=== PATIENT | male | born 1990 | race Caucasian/White ===

== ENCOUNTER 2025-01-03 08:54 | Emergency (ER) | payer OTHER, SELFPAY ==
--- OUTSIDE RECORDS SUMMARY | 2025-01-03 08:59 | XMS_ITS | Encounter Summary ---
Author Organization [facility] Healthcare Address [address] [place] [address] Care Team Providers Care Motorcycle Engine Assembler Name Role Phone Nathaniel Galdamez MD Primary Care Provider [phone] Encounter Details Date Type Department Care Team (Late st Contact Info) Description 11/26/2024 Results Follow-Up [facility] Medical Group Convenient Care at [address] [address] Magaly Mcneal, LINE CREWMAN [address] [place] [address] Jordyn-Ordoñez virus (EBV) antibody panel Blood Social History Tobacco Use Types Packs/Day Years Used Date Smoking Tobacco: Former Cigarettes 1 12.2 2 010 - 08/2021 Vaping Smokeless Tobacco: Never AUDIT-C Answer Date Recorded Q1: How often do you have a drink containing alc ohol? 2-3 times a week 11/12/2021 Q2: How many drinks containi ng alcohol do you have on a typical day when you are drinking? 1 or 2 11/12/2021 Q3: How often do you have si x or more drinks on one occasion? Weekly 11/12/2021 PHQ-2 Answer Date Recorded PHQ-2 Total Score (If total score is 3 or more points, staff should administer the PHQ-9) 0 11/12/2021 [facility] - Occupational Stress Questionnaire Answer Date Recorded Do you feel stress - tense, restless, nervous, or anxious, or unable to sleep at night because your mind is troubled all the time - these days? To some extent 11/12/2021 Exercise Vital Sign Answer Date Recorde d On average, how many days pe r week do you engage in moderate to strenuous exercise (like a brisk walk)? 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 * Result Encounter Note - Magaly Mcneal NP - 11/26/2024 1:05 PM CDT Please call the patient regarding his abnormal result. Louisa test is positive. He should get plenty of rest and avoid vigorous or contact sports to protect spleen for next 4-8 weeks. Use Tylenol or Ibuprofen for comfort and get increased water intake. See Dr. Galdamez for further f/u. Go to ER if uncontrolled pain or fever. documented in this encounter Plan of Treatment Not on file documented as of this encounter Visit Diagnoses Not on filedocumented in this encounter Care Teams Motorcycle Engine Assembler Relationship Specialty Start Date End Date Nathaniel Galdamez MD [address] [place] [address] PCP - General Family Medicine 11/12/21 documented as of this encounter
--- OUTSIDE RECORDS SUMMARY | 2025-01-03 08:59 | XMS_ITS | Clinical Summary ---
Author Organization [facility] Address [address] [place] [address] Phone Care Team Providers Care Pole Frame Construction Worker Name Role Phone Provider, None Primary Care Provider Unavailabl e Allergies No known active allergies Medications No known medications Encounters Date Type Department Care Team Description 11/28/2024 6:52 AM CDT - 11/28/2024 7:50 AM CDT Emergency [facility] [address] [place] [phone] Tung Sanz MD Infectious mononucleosis without complication, infectious mononucleosis due to unspecified organism Discharge Disposition: Discharged to home or Selfcare 11/28/2024 Travel from Last 3 Months Social History Tobacco Use Types Packs/Day Years Used Date Smoking Tobacco: Never Smokeless Tobacco: Never Tobacco Cessation:Counseling Given: Not Answered Sex and Gender Information Value Date Recorded Sex Assigned at Not on file Legal Sex Male 12:44 AM CDT Gender Identity Not on file Sexual Orientation Not on file Last Filed Vital Signs Vital Sign Reading Time Taken Comments Blood Pressure 138/77 11/28/2024 7:45 AM CDT Pulse 71 11/28/2024 7:45 AM CDT Temperature 36.4 C (97.5 F) 11/28/2024 6:58 AM CDT Respiratory Rate 18 11/28/2024 6:58 AM CDT Oxygen Saturation 99% 11/28/2024 7:45 AM CDT Inhaled Oxygen Concentration - - Weight 113.4 kg (250 lb) 11/28/2024 6:58 AM CDT Height 185.4 cm (6' 1) 11/28/2024 6:58 AM CDT Body Mass Index 32.98 11/28/2024 6:58 AM CDT Plan of Treatment Health Maintenance Due Date Last Done Comments Hepatitis C Virus (HCV) Screening 1990 Human Papillomavirus (HPV) Immunization (1 - Male 3-dose series) 2005 Hepatitis B Immunization (1 of 3 - 19+ 3-dose series) 2009 SARS-COV-2 Immunization (1 - 2023-25 season) 2024 Influenza Immunization (#1) 2025 Respiratory Syncytial Virus (RSV) Immunization (Adult) (1 - 1-dose 75+ series) 2065 DTaP/Tdap/Td Immunization Discontinued 12/11/2021 TdaP Immunization Completed 12/11/2021 Meningococcal Immunization (ACWY) Aged Out No longer eligible based on patient's age to complete this topic Pneumococcal Immunization Combined Aged Out No longer eligible based on patient's age to complete this topic Rotavirus Immunization Aged Out No lo nger eligible based on patient's age to complete this topic Insurance [facility] [place] [address] [place] [id number] Care Teams Pole Frame Construction Worker Relationship Specialty Start Date End Date Provider, None [place] PCP - General 05/12/16
--- OUTSIDE RECORDS SUMMARY | 2025-01-03 08:59 | XMS_ITS | Encounter Summary ---
Author Organization [facility] Healthcare Address [address] [place] [address] Care Team Providers Care Field Mechanical Meter Tester Name Role Phone Nathaniel Galdamez MD Primary Care Provider [phone] Encounter Details Date Type Department Care Team (Late st Contact Info) Description 11/28/2024 Results Follow-Up [facility] Medical Group Family Medicine at [facility] [address] [place] [phone] Christin Boles, [address] [place] [address] Throat culture Throat Social History Tobacco Use Types Packs/Day Years [...] staff should administer the PHQ-9) 0 11/12/2021 [facility] of Occupat ional [facility] - Occupational Stress Questionnaire Answer Date Recorded [...] on file 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
--- OUTSIDE RECORDS SUMMARY | 2025-01-03 08:59 | XMS_ITS | Referral Summary ---
Author Organization [facility] Medical Office Building B Address [address] [place] [address] Care Team Providers Care Cotton Seed Culler Name Role Phone Nathaniel Galdamez MD Primary Care Provider [phone] Encounters Date Type Department Care Team Description 11/28/2024 Results Follow-Up [facility] Family Medicine at [facility] 260 [facility] [address] [place] [phone] Christin Boles DO Throat culture Throat 11/26/2024 Results Follow-Up [facility] Care at [address] [place] [address] Magaly Mcneal, EXHIBIT ARTIST Chelsea-Yanez virus (EBV) antibody panel Blood 11/25/2024 11:35 PM CDT - 11/25/2024 11:59 PM CDT Hospital Encounter [address] [address] Infectious mononucleosis without complication, infectious mononucleosis due to unspecified organism Discharge Disposition: Discharge to home or self care 11/25/2024 10:00 AM CDT Lab [facility] Outpatient Lab - Outpatient Center at [address] [id number] Infectious mononucleosis without complication, infectious mononucleosis due to unspecified organism 11/25/2024 9:15 AM CDT Office Visit [facility] Care at [address] [place] [address] Margaux Ceron PA Infectious mononucleosis without complication, infectious mononucleosis due to unspecified organism (Primary Dx) from Last 3 Months Allergies No known active allergies Medications Vascepa 1 gram capsuleIndications :Mixed hyperlipidemia Take 2 capsules (2 g total) by mouth 2 (two) times a day 120 capsule 11 12/12/19 22 Active Additional Information Patient not taking.Reported on 11/25/2024 amLODIPine (NORVASC) 2.5 mg tabletIndications: Hypertension, essential Take 1 tablet (2.5 mg total) by mouth daily 30 tablet 3 12/12/19 22 Active Additional Information Patient not taking.Reported on 11/25/2024 lidocaine viscous (XYLOCAINE) 2 % solutionIndication s:Infectious mononucleosis without complication, infectious mononucleosis due to unspecified organism Apply 10 mL to the mouth or throat 3 (three) times a day as needed (sore throat) Spit out after use. Do not swallow. 100 mL 11/26/19 25 Active Active Problems Problem Noted Date Diagnosed Date Mixed hyperlipidemia 12/14/2021 Assessment & Plan (12/14/2021 1:10 PM CDT): Will continue to discontinue the tricor Vascepa trial starting Continuing DASH plan Hypertension, essential 12/11/2021 Assessment & Plan (12/14/2021 1:10 PM CDT): BP is elevated; will start low-dose amlodipine Will want BP numbers in 2 weeks after start; Encounter for medical examination to establish c are 11/13/2021 Assessment & Plan (11/13/2021 3:52 PM CDT): A(n) initial well visit to establish care has been performed today. Rigoberto Figueroa is up to date on screening tests. He is in need of None- no screening indicated at this time. He is not up to date on needed preventative vaccinations; He is in need of Tdap/Td. BP is elevated Labs pending Xray knee is considered given history of knee surgery Rupture of anterior cruciate ligament of knee Tear of medial meniscus of knee 05/08/2016 Knee pain 05/07/2016 Current smoker 04/02/2016 Overview (10/02/2016): Current smoker Immunizations Immunization Administration Dates Next Due Influenza, Unspecified 06/29/2021(Deferr ed: Patient Refused),06/29/2021(Deferred: Patient Refused),06/29/2020(Deferred: Patient Refused),06/29/2020(Deferred: Patient Refused) Tdap 12/11/2021 Social History Tobacco Use Types Packs/Day Years [...] staff should administer the PHQ-9) 0 11/12/2021 [employer] [place] [facility] Occupat ional Health - Occupational Stress Questionnaire Answer Date Recorded [...] on file 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 Gender Identity Not on file Sexual Orientation Not on file 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 Not on file Not on file Last Filed Vital Signs Vital Sign Reading Time Taken Comments Blood Pressure 128/78 11/25/2024 9:20 AM CDT Pulse 97 11/25/2024 9:20 AM CDT Temperature 37.3 C (99.2 F) 11/25/2024 9:20 AM CDT Respiratory Rate 18 11/25/2024 9:20 AM CDT Oxygen Saturation 96% 11/25/2024 9:20 AM CDT Inhaled Oxygen Concentration - - Weight 113.4 kg (250 lb) 11/25/2024 9:20 AM CDT Height 185.4 cm (6' 1) 11/25/2024 9:20 AM CDT Body Mass Index 32.98 11/25/2024 9:20 AM CDT Plan of Treatment Not on file Procedures Procedure Name Priority Date/Time Associated Diagnosis Comments THROAT CULTURE Routine 11/25/2024 6:00 PM CDT CHELSEA-YANEZ VIRUS VCA ANTIBODY PANEL Routine 11/25/2024 10:06 AM CDT Infectious mononucleosis without complication, infectious mononucleosis due to unspecified organism POCT MONONUCLEOSIS SCREEN Routine 11/25/2024 9:41 AM CDT Infectious mononucleosis without complication, infectious mononucleosis due to unspecified organism POCT RAPID STREP Routine 11/25/2024 9:28 AM CDT Infectious mononucleosis without complication, infectious mononucleosis due to unspecified organism from Last 3 Months Results * Throat culture Throat (11/25/2024 6:00 PM CDT) Report Final Report: No growth of pathogens. Comment:Testing performed by : [facility], [address] [place]., [address] Throat 11/25/2024 6:00 PM CDT 11/26/2024 5:42 AM CDT Narrative CELY MONTE - 11/27/2024 11:06 AM CDT Testing performed by [facility] Microbiology Laboratory ([phone]). us Christin Boles DO LAB MICROBIOLOGY - GENERAL ORDERABLES Final Result CELY [id number] [place] [address] * (ABNORMAL) Chelsea-Yanez virus (EBV) antibody panel Blood (11/25/2024 10:06 AM CDT) [facility] [address] EBV nuclear Ab Positive(A) Negative Comment: Indicates the presence of detectable IgG antibody to EBV Nuclear Antigen. Testing performed by: [facility], [address] [place]., [address] EBV VCA IgG Positive(A) Negative CELY Comment: Indicates the presence of antibody; 90% of the adult population will have been infected with EBV sometime in the past. Testing performed by: [facility], [address] [place]., [address] EBV VCA IgM Negative Negative CELY Comment: No detectable IgM antibody to EBV-VCA. A negative result indicates no current infection with EBV. If clinical suspicion of acute EBV infection is present, testing should be repeated after one week. Testing performed by: [facility], [address] [place]., [address] EBV interp Past Infection CELY Comment:Testing performed by : [facility], [address] [place]., [address] Blood 11/25/2024 10:0 6 AM CDT 11/25/2024 5:14 PM CDT Margaux MARIA LAB MICROBIOLOGY - GENERAL ORDERABLES Final Result CELY [id number] [address] Department [place] [address] * (ABNORMAL) POCT mononucleosis screen (11/25/2024 9:41 AM CDT) [facility] [address] Heterophile, POC positive Blood spot 11/25/2024 9:41 AM CDT Margaux MARIA POINT OF CARE TEST ORDERABLES Final Result * POCT rapid strep A (11/25/2024 9:28 AM CDT) Rapid Strep A, POC Negative Negative Swab 11/25/2024 9:28 AM CDT Margaux MARIA POINT OF CARE TEST ORDERABLES Final Result from Last 3 Months Insurance [employer] Care Teams Cotton Seed Culler Relationship Specialty Start Date End Date Nathaniel Galdamez MD [address] [place] [address] PCP - General Family Medicine 11/12/21
--- OUTSIDE RECORDS SUMMARY | 2025-01-03 08:59 | XMS_ITS | Clinical Summary ---
Author Organization [facility] Medical Office Building B Address [address] [place] [address] Care Team Providers Care Instructional Technology Director Name Role Phone Nathaniel Galdamez MD Primary Care Provider [phone] Allergies No known active allergies Medications Vascepa [...] Current smoker 04/02/2016 Overview (10/02/2016): Current smoker Encounters Date Type Department Care Team Description 11/28/2024 Results Follow-Up [facility] Family Medicine at [facility] [address] [place] [address] [address] [place] [address] Christin Boles, Throat culture Throat 11/26/2024 Results Follow-Up [facility] Care at [address] [place] [address] Magaly Mcneal, ELECTRONIC GLUER Chelsea-Yanez virus (EBV) antibody panel Blood 11/25/2024 11:35 PM CDT - 11/25/2024 11:59 PM CDT Hospital Encounter [address] [address] Infectious mononucleosis without complication, infectious mononucleosis due to unspecified organism Discharge Disposition: Discharge to home or self care 11/25/2024 10:00 AM CDT Lab [facility] Outpatient Lab - Outpatient Center at [address] [address] Infectious mononucleosis without complication, infectious mononucleosis due to unspecified organism 11/25/2024 9:15 AM CDT Office Visit [facility] Care at [address] [place] [phone] Margaux Ceron PA Infectious mononucleosis without complication, infectious mononucleosis due to unspecified organism (Primary Dx) from Last 3 Months Immunizations Immunization Administration Dates Next Due Influenza, Unspecified 06/29/2021(Deferr ed: Patient Refused),06/29/2021(Deferred: Patient Refused),06/29/2020(Deferred: Patient Refused),06/29/2020(Deferred: Patient Refused) Tdap 12/11/2021 Surgical History Surgery Date Site/Laterality Comments ARTHROSCOPIC REPAIR ACL 06/29/2015 - 06/28/2016 Left ARTHROSCOPIC REPAIR ACL 06/29/2008 - 06/28/2009 Left Medical History Medical History Date Comments Hx Other Medical ACL 2007; Comme nts: RIC 04/02/2016 - Family History Medical History Relation Name Comments No Known Problems Brother 2 Depression Brother 3 No Known Problems Father No Known Problems Maternal Grandfather No Known Problems Maternal Grandmother No Known Problems Mother No Known Problems Paternal Grandfather Relation Name Status Comments Brother 1 Alive Brother 2 Alive Brother 3 Alive Father Alive Maternal Grandfather Maternal Grandmother Alive Mother Alive Paternal Grandfather Alive Paternal Grandmother Social History Tobacco Use Types Packs/Day Years [...] staff should administer the PHQ-9) 0 11/12/2021 [facility] [place] of Occupat ional Health - Occupational Stress [...] on file Legal Sex Male 12:55 PM UROLOGIST MD Gender Identity Not on file Sexual Orientation Not on file 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 file Not on file Obstetrics History Last Filed Vital Signs Vital Sign Reading [...] 11/25/2024 9:20 AM CDT Plan of Treatment Health Maintenance Due Date Last Done Comments Hepatitis C Screening 1990 Varicella Vaccines (1 of 2 - 13+ 2-dose series) 2003 Hepatitis B Screening 2008 Depression Screening 11/12/2022 11/12/2021 Regular Well Visit/Exam 18-64 11/12/2022 11/12/2021 Covid-19 Vaccine (3 - 2023-2 5 season) 2024 08/12/2021, 07/14/2021 Influenza Vaccine (Season Ended) 2025 DTaP/Tdap/Td Vaccine (2 - Td or Tdap) 12/12/2031 12/11/2021 HPV Vaccines Aged Out No longer eligi ble based on patient's age to complete this topic Pneumococcal vaccine <65 Aged Out No longer eligible based on patient's age to complete this topic Procedures Procedure Name Priority Date/Time Associated Diagnosis [...] growth of pathogens. Comment:Testing performed by : [facility], [address] [place] [address]., [address] Throat 11/25/2024 6:00 PM CDT 11/26/2024 5:42 AM CDT Letha TA CH - 11/27/2024 11:06 AM CDT Testing performed by [facility] Microbiology Laboratory ([phone]). us Christin Boles DO LAB MICROBIOLOGY - GENERAL ORDERABLES Final Result C[facility] [id number] Department [place] [address] * (ABNORMAL) Chelsea-Yanez virus (EBV) antibody panel Blood (11/25/2024 10:06 AM CDT) EBV nuclear Ab Positive(A) Negative Comment: Indicates the presence of detectable IgG antibody to EBV Nuclear Antigen. Testing performed by: [facility], [address] [place] [address]., [address] EBV VCA IgG Positive(A) Negative CELY Comment: Indicates the presence of antibody; 90% of the adult population will have been infected with EBV sometime in the past. Testing performed by: [facility], [address] [place] [address], [place]., [address] EBV VCA IgM Negative Negative CELY MONTE Comment: No detectable IgM antibody to EBV-VCA. A negative result indicates no current infection with EBV. If clinical suspicion of acute EBV infection is present, testing should be repeated after one week. Testing performed by: [facility], [address] [place]., [address] EBV interp Past Infection CELY MONTE Comment:Testing performed by : [facility], [address] [place]., [address] Blood 11/25/2024 10:0 6 AM CDT 11/25/2024 5:14 PM CDT Margaux MARIA LAB MICROBIOLOGY - GENERAL ORDERABLES Final Result CELY [address] Department [place] [address] * (ABNORMAL) POCT mononucleosis screen (11/25/2024 9:41 AM CDT) Heterophile, POC positive Blood spot 11/25/2024 9:41 AM CDT Margaux MARIA POINT OF CARE TEST ORDERABLES Final Result * POCT rapid strep A (11/25/2024 9:28 AM CDT) Rapid Strep A, POC Negative Negative Swab 11/25/2024 9:28 AM CDT Margaux MARIA POINT OF CARE TEST ORDERABLES Final Result from Last 3 Months Insurance [employer] Care Teams Instructional Technology Director Relationship Specialty Start Date End Date Nathaniel Galdamez MD [address] [place] [id number] PCP - General Family Medicine 11/12/21
[2025-01-03 09:02] VITALS: BP 145/86; PULSE 80; RESP 20; TEMP 36.7; O2SAT 100
--- OUTSIDE RECORDS SUMMARY | 2025-01-03 09:03 | XMS_ITS | Clinical Summary ---
Author Organization [facility] Health Address [address] [place] [address] Care Team Providers Care Blow Pit Operator Name Role Phone Nathaniel Galdamez MD Primary Care Provider Source Comments [facility],non-owned Affiliates and Associated Physician Practices is amultiple site organization consisting of ambulatory clinics and hospital sitesin [place], [place], [place] and [place]. This disclosure is being madepursuant to the Care Everywhere program and may not contain all information available regarding this patient. Last updated 18.[facility]out Allergies No known active allergies Social History Tobacco Use Types Packs/Day Years Used Date Smoking Tobacco: Never Assessed PHQ-2 Answer Date Recorded Patient Health Questionnaire-2 Score 0 09/10/2023 Sex and Gender Information Value Date Recorded Sex Assigned at Male 09/09/2023 8:14 PM CDT Legal Sex Male 9:50 AM CURRICULUM DEVELOPER Gender Identity Male 09/09/2023 8:14 PM CDT Sexual Orientation Not on file Last Filed Vital Signs Vital Sign Reading Time Taken Comments Blood Pressure - - Pulse - - Temperature - - Respiratory Rate - - Oxygen Saturation - - Inhaled Oxygen Concentration - - Weight 113.4 kg (250 lb) 09/10/2023 8:46 AM CDT Height 185.4 cm (6' 1) 09/10/2023 8:46 AM CDT Body Mass Index 32.98 09/10/2023 8:46 AM CDT Plan of Treatment Health Maintenance Due Date Last Done Comments HIV SCREENING 2005 HEPATITIS C SCREENING 03/02/2008 DTAP/TDAP/TD VACCINES (1 - Tdap) 2009 HEPATITIS B VACCINE (1 of 3 - 19+ 3-dose series) 2009 COVID-19 VACCINE (1 2023-2 5 season) 2024 DEPRESSION SCREENING 06/29/2024 09/10/2023 INFLUENZA VACCINE (#1) 2025 ZOSTER VACCINE (1 of 2) 2040 HIB VACCINE Aged Out No longer eligi ble based on patient's age to complete this topic HPV VACCINE Aged Out No longer eligi ble based on patient's age to complete this topic MENINGOCOCCAL (Group B) VACC INE SHARED DECISION-MAKING Aged Out No longer eligibl e based on patient's age to complete this topic MENINGOCOCCAL GROUPS A/C/Y/W VACCINE Aged Out No longer eligible b ased on patient's age to complete this topic PNEUMOCOCCAL VACCINE Aged Out No long er eligible based on patient's age to complete this topic Insurance [employer] Care Teams Blow Pit Operator Relationship Specialty Start Date End Date Nathaniel Galdamez MD [address] [facility] [address] [place] [address] PCP - General Family Medicine 08/25/23
[2025-01-03 09:20] LABS: EDSTREPNEGPOS1 Negative (Negative)
--- NOTE | 2025-01-03 09:33 | ED_ITS ---
HPI - URI/Sore Throat General Chief Complaint: Upper Respiratory Infection Stated Complaint: throat Time Seen by Provider: 01/03/25 09:15 Source: patient and RN notes reviewed Mode of arrival: ambulatory Limitations: no limitations History of Present Illness HPI Narrative: 34-year-old male presents [facility] complaining of sore throat for approximately 2 days. Patient said he was diagnosed with mono proximally 7 weeks ago but reports that is fully resolved. Patient was camping over the weekend states that he woke up with a sore throat that will subsided about a hour later but has been persistent daily. Pain is since he believes is 2-year-old with having fevers over the weekend but is feeling better and is not sure if he got subcu from her. Patient denies any congestion, cough, runny nose, sneezing, fevers, body aches, chills, nausea, vomiting, chest pain, dyspnea, or any other symptoms. Patient has tried Tylenol and ibuprofen with some relief. Related Data Home Medications ?Medication ?Instructions ?Recorded ?Confirmed ?Last Taken ?Type No Home Medications 01/03/25 01/03/25 Unknown History Allergies Allergy/AdvReac Type Severity Reaction Status Date / Time No Known Allergies Allergy Verified 01/03/25 09:18 Review of Systems Review of Systems: CONSTITUTIONAL: Denies fever, chills, body aches, or sweats. EYES: Denies visual changes, redness, or discharge. ENT: Negative for rhinorrhea, congestion, or otalgia. Positive for sore throat. CARDIOVASCULAR: Denies chest pain, palpitations, or edema. RESPIRATORY: Negative for cough, wheezing, and dyspnea. GASTROINTESTINAL: Denies abdominal pain, nausea, vomiting, or diarrhea. GENITOURINARY: Denies dysuria or hematuria. SKIN: Denies rash or itching. MUSCULOSKELETAL: Denies back pain, joint pain, or myalgia. NEUROLOGIC: Denies headache, numbness, or weakness. PSYCHIATRIC: Denies anxiety or depression. All other systems reviewed are negative, except as documented in HPI. [facility] Social History Social History Smoking status: Current every day smoker Alcohol intake: current Comments At the time of my signature, I reviewed and agree with the nursing past medical, surgical, social, and family history. There is no relevant family history pertinent to the patient complaint. Exam Narrative: GENERAL: This is a well-nourished, well-developed adult, in no apparent distress. They are non ill-appearing, nontoxic appearing. HEAD: normocephalic, atraumatic. EYES: Sclera clear/white. Vision is grossly intact. Conjunctiva normal bilaterally. Extraocular movements intact. EARS: External ears normal, auditory canals clear and without drainage, TMs without erythema or perforation. Hearing grossly intact. NOSE: External nose normal with no obvious nasal discharge, nasal turbinates without redness or swelling, no rhinorrhea. THROAT: Mucous membranes moist, posterior pharynx erythematous without redness, no exudate. Uvula is midline. Postnasal drip present. NECK: Neck supple, non-tender without lymphadenopathy, masses or thyromegaly. CARDIOVASCULAR: Regular rate and rhythm without murmurs, gallops, or rubs. RESPIRATORY: Clear to auscultation. Breath sounds equal bilaterally. No wheezes, rales, or rhonchi. SKIN: warm, Dry, intact with no suspicious lesions or rash, good texture and turgor. NEURO: awake, alert, and oriented to person, place and time. There were no obvious focal neurologic abnormalities. EXTREMITIES: No joint tenderness, effusion, or edema noted. BACK: Nontender without deformity. Course Course Emergency Course: Portions of this record may have been created with voice recognition software Level of Care: Express Care Visit Vital Signs Vital signs: Vital Signs Temperature 98.0 F 01/03/25 09:02 Pulse Rate 80 01/03/25 09:02 Respiratory Rate 20 01/03/25 09:02 Blood Pressure 145/86 H 01/03/25 09:02 Pulse Oximetry 100 01/03/25 09:02 Oxygen Delivery Room Air 01/03/25 09:02 Temperature 98.0 F 01/03/25 09:02 Pulse Rate 80 01/03/25 09:02 Respiratory Rate 20 01/03/25 09:02 Blood Pressure 145/86 H 01/03/25 09:02 Pulse Oximetry 100 01/03/25 09:02 Oxygen Delivery Room Air 01/03/25 09:02 MDM - URI/Sore Throat MDM Narrative Medical decision making narrative: Rapid strep negative. Throat culture pending. Patient's symptoms likely appears likely to be allergies. Recommend [id number] therapy for patient. Discussed physical exam findings. Advised supportive measures and signs/symptoms to go to the ER. Pt is appropriate for outpt treatment and f/u. Differential Diagnosis Differential diagnosis: Likely upper respiratory infection, viral infection and other (Allergies, allergic rhinitis) Lab Data Attestation: I reviewed the patient's lab results. Labs: Lab Results 01/03/25 Range/Units 09:08 POC Grp A Strep Screen Negative (Negative) Discharge Plan Discharge Clinical Impression: Allergies Qualifiers: Encounter type: initial encounter Qualified Code(s): T78.40XA - Allergy, unspecified, initial encounter Patient Disposition: Home Condition: Stable Instructions: Allergies (ED) Additional Instructions: Your rapid strep swab was negative today at [facility]. You will be notified in a few days if the culture comes back positive for strep, and appropriate antibiotics will be called in for you at that time. Your symptoms are likely due to allergies. Take Tylenol or ibuprofen as needed for fever or pain. You may take [id number] Zyrtec Claritin as needed for allergy symptoms. You may also use Flonase nasal spray 2 sprays each nostril daily. You may also use Azelastine and antihistamine spray 2 sprays each nostril daily. Rest and stay hydrated. Follow up with your PCP in 3-5 days if symptoms are not improving. Go to the ER immediately if you develop difficulty breathing or swallowing Patient Language: Mohawk Prescriptions: No Action No Home Medications Follow-up/Referrals: Denice,Nathaniel Montanez MD [Primary Care Provider] - Time of Disposition: 09:30
== END 2025-01-03 09:31 | disposition home or self-care (01) ==
PROVIDERS: PCP Family Medicine
DX: T78.40XA Allergy, unspecified, initial encounter (principal); F17.200 Nicotine dependence, unspecified, uncomplicated
CPT/HCPCS: 87081; 87880; 99202; G0463